=== PATIENT | male | born 1970 | race American Indian/Alaskan Native ===

== ENCOUNTER 2018-07-07 11:20 | Inpatient (IN) | payer OTHER ==
[2018-07-07] MEDS ORDERED: ZOFRAN IV ONE (12:08)
[2018-07-07] MEDS ORDERED: MORPHINE IV ONE (12:08)
[2018-07-07] MEDS ORDERED: NACL 0.9% 1000 ML 1,000 ML IV ONE (12:08)
[2018-07-07] MEDS ORDERED: MORPHINE IV PRN ×2 (12:18→13:33)
[2018-07-07 12:58] LABS: Basophils % (Auto) 0.4 % (0.0-1.8); Eosinophils # (Auto) 0.1 K/mm3 (0.0-0.4); Hematocrit 40.9 % (35.5-45.6); Hemoglobin 13.2 gm/dl (11.8-15.2); Lymphocytes # (Auto) 1.3 K/mm3 (1.2-5.4); Lymphocytes % (Auto) 12.2 % (13.4-35.0); Mean Corpuscular HGB Conc 32 % (32-34); Mean Corpuscular Volume 92 fl (84-94); Monocytes # (Auto) 0.5 K/mm3 (0.0-0.8); Monocytes % (Auto) 5.3 % (0.0-7.3); Platelet Count 183 K/mm3 (140-440); Red Blood Count 4.45 M/mm3 (3.65-5.03); Red Cell Distribution Width 12.7 % (13.2-15.2)
[2018-07-07 13:12] LABS: INR 0.94 (0.87-1.13)
[2018-07-07 13:15] LABS: BUN/Creatinine Ratio 6; Blood Urea Nitrogen 7 mg/dL (9-20); Calcium 8.7 mg/dL (8.4-10.2); Hemolysis Index 27
--- NOTE | 2018-07-07 13:28 | Emergency Department Report ---
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 Somehow he was pushing and pulling and he states his knee pop. He felt like it moved out of place. He couldn't state in one direction. He complains of substantial pain to his left knee. He denies any other injury. He did not fall. -: Sudden Location: left, lower extremity Severity scale (0 -10): 10 Quality: aching Consistency: constant Improves with: none Worsens with: movement Associated Symptoms: denies other symptoms - Related Data Home Medications Medication Instructions Recorded Confirmed Last Taken No Known Home Medications [No 07/07/18 07/07/18 Unknown Reported Home Medications] Allergies Allergy/AdvReac Type Severity Reaction Status Date / Time No Known Allergies Allergy Unverified 07/07/18 12:10 ED Review of Systems ROS: Stated complaint: (L) KNEE PAIN Other details as noted in HPI Constitutional: denies: chills, fever Eyes: denies: eye pain, eye discharge, vision change ENT: denies: ear pain, throat pain Respiratory: denies: cough, shortness of breath, wheezing Cardiovascular: denies: chest pain, palpitations Endocrine: no symptoms reported Gastrointestinal: denies: abdominal pain, nausea, diarrhea Genitourinary: denies: urgency, dysuria Musculoskeletal: as per HPI. denies: back pain Skin: denies: rash, lesions Neurological: denies: headache, weakness, paresthesias Psychiatric: denies: anxiety, depression Hematological/Lymphatic: denies: easy bleeding, easy bruising ED Past Medical Hx - Past Medical History Previous Medical History?: No - Surgical History Past Surgical History?: No - Social History Smoking Status: Never Smoker Substance Use Type: None - Medications Home Medications: Home Medications Medication Instructions Recorded Confirmed Last Taken Type No Known Home Medications [No 07/07/18 07/07/18 Unknown History Reported Home Medications] ED Physical Exam - General Limitations: No Limitations General appearance: alert, in no apparent distress - Head Head exam: Present: atraumatic, normocephalic - Eye Eye exam: Present: normal appearance - ENT ENT exam: Present: mucous membranes moist - Neck Neck exam: Present: normal inspection - Respiratory Respiratory exam: Present: normal lung sounds bilaterally. Absent: respiratory distress - Cardiovascular Cardiovascular Exam: Present: regular rate, normal rhythm. Absent: systolic murmur, diastolic murmur, rubs, gallop - GI/Abdominal GI/Abdominal exam: Present: soft, normal bowel sounds - Rectal Rectal exam: Present: deferred - Extremities Exam Extremities exam: Present: other (the patient appears to have patella [place]. He appears to have a complete defect of the quadriceps femoris tendon above the period there is no obvious joint effusion. He cannot extend his leg at the knee whatsoever. Otherwise neurovascular exam is intact.) - Back Exam Back exam: Present: normal inspection - Neurological Exam Neurological exam: Present: alert, oriented X3 - Psychiatric Psychiatric exam: Present: normal affect, normal mood - Skin Skin exam: Present: warm, dry, intact, normal color. Absent: rash ED Course Vital Signs 07/07/18 11:44 Temperature 97.6 F Pulse Rate 75 Respiratory 16 Rate Blood Pressure 117/69 O2 Sat by Pulse 98 Oximetry - Reevaluation(s) Reevaluation #1: Patient was seen by the orthopedist Dr. Mercado. He asked for hospital medicine to admit. I discussed with Dr. Julian who was admitted this patient for further care and evaluation. Dr. Mercado stated for him to be nothing by mouth at midnight for surgery in the a.m. 07/07/18 13:31 ED Medical Decision Making - Lab Data Result diagrams: 07/07/18 12:35 07/07/18 12:35 Laboratory Results - last 24 hr 07/07/18 07/07/18 07/07/18 12:35 12:35 12:35 WBC 10.4 RBC 4.45 Hgb 13.2 Hct 40.9 MCV 92 MCH 30 MCHC 32 RDW 12.7 L Plt Count 183 Lymph % (Auto) 12.2 L [place] % (Auto) 5.3 Eos % (Auto) 1.0 Baso % (Auto) 0.4 Lymph # 1.3 [place] # 0.5 Eos # 0.1 Baso # 0.0 Seg Neutrophils % 81.1 H Seg Neutrophils # 8.4 H PT 13.0 INR 0.94 APTT 22.0 L Sodium 142 Potassium 4.5 Chloride 103.6 Carbon Dioxide 30 Anion Gap 13 BUN 7 L Creatinine 1.1 Estimated GFR > 60 BUN/Creatinine Ratio 6 Glucose 99 Calcium 8.7 Critical care attestation.: If time is entered above; I have spent that time in minutes in the direct care of this critically ill patient, excluding procedure time. ED Disposition Clinical Impression: Rupture of left quadriceps tendon Qualifiers: Encounter type: initial encounter Qualified Code(s): S76.112A - Strain of left quadriceps muscle, fascia and tendon, initial encounter Disposition: OP ADMIT IP TO THIS HOSP Is pt being admited?: Yes Does the pt Need Aspirin: No Condition: Stable Time of Disposition: 13:32
--- NOTE | 2018-07-07 13:42 | XRay Report ---
LEFT KNEE, 2 views: History: Trauma, pain, apparent ruptured quadriceps tendon. The bony architecture is intact without evidence of fracture or dislocation. No significant soft tissue abnormality is seen. The quadriceps tendon is poorly demonstrated on x-ray but no obvious rupture is apparent. If further evaluation is needed, MRI left knee without contrast is recommended. IMPRESSION: Unremarkable left knee.
--- NOTE | 2018-07-07 16:42 | Consultation ---
History of Present Illness - [facility] Consult date: 07/07/18 Consult reason: joint pain History of present illness: 47-year-old male who comes in complaining of left knee pain after pushing and pulling on a large Coke Machine earlier today, states felt knee pop and since th at time unable to support himself on the left side, came to ED where xrays taken revealing evidence of quadricep tendon rupture.... Medications and Allergies Allergies Allergy/AdvReac Type Severity Reaction Status Date / Time No Known Allergies Allergy Unverified 07/07/18 12:10 Home Medications Medication Instructions Recorded Confirmed Last Taken Type No Known Home Medications [No 07/07/18 07/07/18 Unknown History Reported Home Medications] Active Meds: Active Medications Sodium Chloride (Nacl 0.9% 1000 Ml) 1,000 mls @ 125 mls/hr IV ONCE ONE Stop: 07/07/18 20:07 Last Admin: 07/07/18 12:34 Dose: 125 mls/hr Documented by: Morphine Sulfate (Morphine) 4 mg IV ONCE PRN PRN Reason: Pain , Severe (7-10) Last Admin: 07/07/18 12:35 Dose: 4 mg Documented by: Morphine Sulfate (Morphine) 4 mg IV Q4H PRN PRN Reason: Pain , Severe (7-10) Physical Examination - Physical exam Narrative exam: Physical examination significant musculoskeletal findings released to the left lower extremity. Patient was noted to have a gap noted at the proximal border of the left patella with tenderness noted along the distal thigh patient is unable to extend the knee skin is intact remainder of his physical exam was unremarkable Plan x-rays taken in the ER were reviewed by me and show evidence of a quadriceps tendon rupture with patella [place] no fracture or dislocation was seen Eyes: PERRL ENT: Positive: clear oral mucosa Respiratory effort: normal Respiratory: bilateral: CTA Rhythm: regular Heart Sounds: Positive: S1 & S2 General gastrointestinal: Positive: soft, non-tender, non-distended, normal bowel sounds Integumentary: clear, warm, dry Neurologic: Positive: CNII-XII intact, moves all extremities, gait normal. Negative: focal deficits - Cervical Spine Neck pain: none Tenderness with palpation: none Full ROM: yes ROM: flexion: normal ROM: extension: normal ROM: rotation right: normal ROM: rotation left: normal ROM: lateral flexion right: normal ROM: lateral flexion left: normal - Lumbar Spine Back pain: none Tenderness with palpation: none Appearance: normal Full ROM: yes ROM: flexion: normal ROM: extension: normal ROM: rotation right: normal ROM: rotation left: normal ROM: lateral flexion right: normal ROM: lateral flexion left: normal Assessment and Plan Acute rupture left quadriceps tendon Recommendation We'll admit and repair ruptured left patella tendon
[2018-07-07] MEDS ORDERED: ZOFRAN IV PRN (22:54)
[2018-07-07] MEDS ORDERED: TYLENOL PO PRN (22:54)
[2018-07-07] MEDS ORDERED: SODIUM CHLORIDE FLUSH SYRINGE 10 ML IV PRN (22:54)
[2018-07-08 04:57] LABS: Basophils % (Auto) 0.4 % (0.0-1.8); Eosinophils # (Auto) 0.1 K/mm3 (0.0-0.4); Eosinophils % (Auto) 1.4 % (0.0-4.3); Hematocrit 38.9 % (35.5-45.6); Hemoglobin 12.7 gm/dl (11.8-15.2); Lymphocytes # (Auto) 2.2 K/mm3 (1.2-5.4); Lymphocytes % (Auto) 24.1 % (13.4-35.0); Mean Corpuscular HGB Conc 33 % (32-34); Mean Corpuscular Volume 92 fl (84-94); Monocytes # (Auto) 0.8 K/mm3 (0.0-0.8); Monocytes % (Auto) 8.8 % (0.0-7.3); Platelet Count 169 K/mm3 (140-440); Red Blood Count 4.21 M/mm3 (3.65-5.03); Red Cell Distribution Width 12.8 % (13.2-15.2)
[2018-07-08 05:12] LABS: BUN/Creatinine Ratio 9; Blood Urea Nitrogen 9 mg/dL (9-20); Calcium 8.6 mg/dL (8.4-10.2); Hemolysis Index 18
--- NOTE | 2018-07-08 06:04 | Event Note ---
Date: 07/07/18 See dictated H/p in reports L Quadriceps tear
--- NOTE | 2018-07-08 06:48 | History and Physical Report ---
CHIEF COMPLAINT: Left thigh pain. HISTORY OF PRESENT ILLNESS: A 47-year-old -[place] male with no significant past medical history, who was trying to move a Coke machine by 3 inches forward and felt a snap in his lower part of his thigh and was about to fall down. Unable to extend the leg totally. Pain is about 8 on a scale of 1-10. Injury happened about a couple of hours ago. The patient is normally strong and has been trying to run for a mile every couple of days recently. No weight training. No shortness of breath. No recent travel. PAST MEDICAL HISTORY: None. PAST SURGICAL HISTORY: None. SOCIAL HISTORY: Does not smoke. No alcohol. No recreational drugs. FAMILY HISTORY: Hypertension. REVIEW OF SYSTEMS: Left lower thigh pain, decreased range of motion, and decreased extension at the left knee and also at the left groin region. PHYSICAL EXAMINATION: GENERAL: Young male, cooperative during examination. VITAL SIGNS: Blood pressure 140/73, temperature 98.5, pulse 78, and respirations 18. HEENT: Unremarkable. Pupils equal and reactive. NECK: Supple. No lymphadenopathy. No thyromegaly. LUNGS: Clear to auscultation and percussion. Good air entry. CARDIOVASCULAR: S1, S2 heard. No gallop. No murmur. No rub. Apical impulse in left fifth intercostal space and midclavicular line. ABDOMEN: Soft and benign. No hepatosplenomegaly. No guarding. No rigidity. Hernial orifices are normal. EXTREMITIES: The patient unable to extend at the left knee and also at the left hip joint. Tenderness present in the lower part of the thigh. CENTRAL NERVOUS SYSTEM: Normal. LABORATORY DATA: Labs are normal. CBC within normal limits. Electrolytes are within normal limits. DIAGNOSTIC DATA: X-ray of the left lower extremity shows poorly demonstrated quadriceps tendon. No obvious rupture was present. MRI of the left knee was recommended. ASSESSMENT AND PLAN: Left lower extremity quadriceps tendon rupture distally. MRI ordered. No fracture of the patella. Orthopedics consulted. The patient to go for repairing of the left patellar tendon tomorrow. Orthopedic consult appreciated. Deep vein thrombosis prophylaxis, Lovenox 40 mg subcutaneous daily after the surgery. Pain management. The pain to be controlled adequately. JOB# [id number] VSSusan/GELA MEHTA
[2018-07-08] MEDS ORDERED: DILAUDID IV PRN ×2 (09:54→15:46)
[2018-07-08] MEDS ORDERED: DEMEROL IV PRN (09:54)
[2018-07-08] MEDS ORDERED: ZOFRAN IV PRN ×2 (09:54→15:46)
[2018-07-08] MEDS ORDERED: NEURONTIN PO NR (10:00)
[2018-07-08] MEDS ORDERED: LACTATED RINGERS 1,000 ML IV SCH ×3 (10:00→17:00)
[2018-07-08] MEDS: SODIUM CHLORIDE FLUSH SYRINGE 10 ML IV SCH (10:45)
[2018-07-08] MEDS ORDERED: VERSED IV NR (16:00)
--- NOTE | 2018-07-08 16:02 | Progress Note ---
Assessment and Plan Assessment and plan: Patient is 47 yo man without chronic medical problems who presented to [facility] ED with left knee pains after pushing and pulling on a large Coke Machine at work for [employer]. He felt knee pop and since that time unable to support himself on the left side, xrays taken revealing evidence of quadricep tendon rupture. He denies sob, chest pains. Left quadricep tendon rupture: OR per Ortho DVT prophylaxis per Ortho History Interval history: Patient was seen and examined. Follow-up on current diagnosis of left knee pains. Overnight uneventful. Patient denies any chest pain, shortness breath, nausea/vomiting or severe headaches. Imaging, nursing note, chart, labs and old chart reviewed. Discussed with patient. at bedside. Hospitalist Physical - Physical exam Narrative exam: Gen: WDWN, NAD, Awake, Alert, Orientated x 3 HEENT: NCAT, EOMI, PERRL, OP Clear Neck: supple, no adenopathy, no thyromegaly, no JVD CVS/Heart: RRR, normal S1S2, pulses present bilaterally Chest/Lungs: CTA B, Symmetrical chest expansion, good air entry bilaterally GI/Abdomen: soft, NTND, good bowel sounds, no guarding or rebound /Bladder: no suprapubic tenderness, no CVA or paraspinal tenderness Extermity/Skin: left knee slightly swollen MSK: left knee slightly turned outward Neuro: CN 2-12 grossly intact, no new focal deficits Psych: calm - Constitutional Vitals: Temp Pulse Resp BP Pulse Ox 98.3 F 70 16 126/60 97 07/08/18 11:07 07/08/18 11:05 07/08/18 11:07 07/08/18 11:07 07/08/18 11:05 Results - Labs CBC & Chem 7: 07/08/18 04:30 07/08/18 04:30 Labs: Laboratory Last Values WBC 9.0 K/mm3 (4.5-11.0) 07/08/18 04:30 RBC 4.21 M/mm3 (3.65-5.03) 07/08/18 04:30 Hgb 12.7 gm/dl (11.8-15.2) 07/08/18 04:30 Hct 38.9 % (35.5-45.6) 07/08/18 04:30 MCV 92 fl (84-94) 07/08/18 04:30 MCH 30 pg (28-32) 07/08/18 04:30 MCHC 33 % (32-34) 07/08/18 04:30 RDW 12.8 % (13.2-15.2) L 07/08/18 04:30 Plt Count 169 K/mm3 (140-440) 07/08/18 04:30 Lymph % (Auto) 24.1 % (13.4-35.0) 07/08/18 04:30 [place] % (Auto) 8.8 % (0.0-7.3) H 07/08/18 04:30 Eos % (Auto) 1.4 % (0.0-4.3) 07/08/18 04:30 Baso % (Auto) 0.4 % (0.0-1.8) 07/08/18 04:30 Lymph # 2.2 K/mm3 (1.2-5.4) 07/08/18 04:30 [place] # 0.8 K/mm3 (0.0-0.8) 07/08/18 04:30 Eos # 0.1 K/mm3 (0.0-0.4) 07/08/18 04:30 Baso # 0.0 K/mm3 (0.0-0.1) 07/08/18 04:30 Seg Neutrophils % 65.3 % (40.0-70.0) 07/08/18 04:30 Seg Neutrophils # 5.9 K/mm3 (1.8-7.7) 07/08/18 04:30 PT 13.0 Sec. (12.2-14.9) 07/07/18 12:35 INR 0.94 (0.87-1.13) 07/07/18 12:35 APTT 22.0 Sec. (24.2-36.6) L 07/07/18 12:35 Sodium 143 mmol/L (137-145) 07/08/18 04:30 Potassium 3.7 mmol/L (3.6-5.0) 07/08/18 04:30 Chloride 106.2 mmol/L (98-107) 07/08/18 04:30 Carbon Dioxide 27 mmol/L (22-30) 07/08/18 04:30 Anion Gap 14 mmol/L 07/08/18 04:30 BUN 9 mg/dL (9-20) 07/08/18 04:30 Creatinine 1.0 mg/dL (0.8-1.5) 07/08/18 04:30 Estimated GFR > 60 ml/min 07/08/18 04:30 BUN/Creatinine Ratio 9 % 07/08/18 04:30 Glucose 100 mg/dL (75-100) 07/08/18 04:30 Calcium 8.6 mg/dL (8.4-10.2) 07/08/18 04:30 Nutrition/Malnutrition Assess - Dietary Evaluation Nutrition/Malnutrition Findings: Nutrition Notes Start: 07/08/18 14:17 Freq: Status: Active Protocol: Document 07/08/18 14:17 RM (Rec: 07/08/18 14:17 [id number]) Nutrition Notes Need for Assessment generated from: [email or web address] attendant Initial or Follow up Brief Note Subjective/Other Information Pt screened for skin risk. Maximo 19 points. Nutrition Intervention Revisit per MD consult or patient Sign Off request:
--- NOTE | 2018-07-08 16:04 | Anesthesia Day of Surgery ---
Anesthesia Day of Surgery - Day of Surgery Patient Examined: Yes Patient H&P Reviewed: Yes Patient is NPO: Yes Beta Blockers: No Cardiac Clearance: No Pulmonary Clearance: No
--- NOTE | 2018-07-08 16:05 | Anesthesia Consultation ---
Anesthesia Consult and Med Hx Date of service: 07/08/18 - Airway Anesthetic Teeth Evaluation: Good ROM Head & Neck: Adequate Mental/Hyoid Distance: Adequate Mallampati Class: Class III Intubation Access Assessment: Good - Pulmonary Exam CTA: No - Pre-Operative Health Status ASA Pre-Surgery Classification: ASA1 Proposed Anesthetic Plan: General - Pulmonary Hx Smoking: No Hx Asthma: No COPD: No Hx Pneumonia: No - Cardiovascular System Hx Hypertension: No Hx Coronary Artery Disease: No Hx Heart Attack/AMI: No Hx Angina: No Hx Percutaneous Transluminal Coronary Angioplasty (PTCA): No Hx Cardia Arrhythmia: No Hx Pacemaker: No Hx Internal Defibrillator: No Hx Valvular Heart Disease: No Hx Heart Murmur: No Hx Peripheral Vascular Disease: No - Central Nervous System Hx Neuromuscular Disorder: No Hx Seizures: No CVA: No Hx Back Pain: No Hx Psychiatric Problems: No - Gastrointestinal Hx Ulcer: No Hx Gastroesophageal Reflux Disease: No - Endocrine Hx Renal Disease: No Hx End Stage Renal Disease: No Hx Cirrhosis: No Hx Liver Disease: No Hx Insulin Dependent Diabetes: No Hx Non-Insulin Dependent Diabetes: No Hx Thyroid Disease: No Hx Hypothyroidism: No Hx Hyperthyroidism: No - Hematic Hx Anemia: No Hx Sickle Cell Disease: No - Other Systems Hx Alcohol Use: No Hx Substance Use: No Hx Cancer: No Hx Obesity: No
[2018-07-08] MEDS ORDERED: DIPRIVAN 10 MG/ML IV ONE (16:53)
[2018-07-08] MEDS ORDERED: XYLOCAINE MPF 2% ONE (16:53)
[2018-07-08] MEDS ORDERED: SUBLIMAZE ONE ×3 (16:53→19:53)
--- NOTE | 2018-07-08 18:25 | Anesthesia Day of Surgery ---
Anesthesia Day of Surgery - Day of Surgery Patient Examined: Yes Patient H&P Reviewed: Yes Patient is NPO: Yes
[2018-07-08] MEDS ORDERED: VERSED ONE (18:26)
[2018-07-08] MEDS ORDERED: ANCEF/STERILE WATER 2 GM/20 ML 2 GM/20 ML SYRINGE IV ONE (19:21)
[2018-07-08] MEDS ORDERED: TORADOL ONE (20:08)
[2018-07-08] MEDS ORDERED: MARCAINE 0.5% INFILTRATI ONE ×2 (20:09→20:44)
[2018-07-08] MEDS ORDERED: MORPHINE ONE (20:09)
[2018-07-08] MEDS ORDERED: NACL 0.9% 100 ML ONE (20:10)
[2018-07-08] MEDS ORDERED: NACL 0.9% IV ONE (20:44)
[2018-07-08] MEDS ORDERED: TORADOL IV ONE (20:44)
[2018-07-08] MEDS ORDERED: MORPHINE IM ONE (20:44)
--- NOTE | 2018-07-08 21:09 | Procedure Note ---
Date of procedure: 07/08/18 Pre-op diagnosis: left quadriceps tendon rupture Post-op diagnosis: same Procedure: Repair of left quadriceps tendon rupture, exploration right quadricep tendon Procedure The patient was brought to the OR and placed on the OR table supine, following induction and intubation the patient's right knee was prepped and draped in usual sterile fashion. A time-out procedure done to identify the patient and correct operative site. Informed that the surgical consent stated left quadricep repair but right leg prepped instead we began the incision on the right thigh. Upon entering the deep subcutaneous tissue I noticed that the right quads tendon was intact and then I took the knee through full range of motion, therefore I proceeded to close the wound in standard fashion and applied the dressing. The draping material removed from the right leg and the patient's left knee inspected and found to have a gap noted where the quads tendon inserts therefore decision made to proceed with redraping the left lower extremity. The left leg was exsanguinated and tourniquet inflated to 300 mm Hg. A midline incision made and carried down through the skin and subcutaneous tissue, the quadricep tendon rupture seen coming off proximal pole of the patellar and extending through both medial and lateral retinaculi, hemtoma evacuated next number 5 etibond suture used to repair rupture quads tendon beginning 3 cm within tendon above insertion site and weaving through tendon tissue. Two parallel tunnels made through the patella using 2.0 drill bit followed by securing the # 5 suture at the inferior pole with the knee in full extension. The medial and lateral pat ellar reticulum repaired using # 1 vicryl sutures. The deep subcutaneous tissue closed in standard routine fashion, the skin closed with Zip line suture devise, routine post op dressing applied. He was extubated and taken to post anesthesia recovery in stable condition Anesthesia: ALAINA Surgeon: OMAR TAYLOR Pathology: none Condition: stable Disposition: PACU
[2018-07-08] MEDS ORDERED: DILAUDID ONE ×2 (21:25→21:56)
[2018-07-08] MEDS ORDERED: DEMEROL ONE (21:49)
[2018-07-08] MEDS ORDERED: SODIUM CHLORIDE FLUSH SYRINGE 10 ML IV NR (22:00)
[2018-07-09] MEDS: SODIUM CHLORIDE FLUSH SYRINGE 10 ML IV SCH ×3 (06:22→22:29)
[2018-07-09] MEDS: ANCEF/NS 1 GM/50 ML 1 GM/50 ML BAG IV SCH ×2 (06:53→13:00)
[2018-07-09] MEDS: MORPHINE IV PRN ×3 (06:57→18:27)
--- NOTE | 2018-07-09 13:38 | Progress Note ---
Assessment and Plan s/p repair left ruptured quadriceps tendon doing well will dc to home in am RTC 1 wk Subjective Date of service: 07/09/18 Interval history: doing ok, PT started walked in hallway, c/o incisional pain otherwise ok Objective Vital signs: Vital Signs - 12hr 07/09/18 07/09/18 07:59 08:00 Temperature 98.4 F Pulse Rate 87 Blood Pressure 124/58 O2 Sat by Pulse 98 Oximetry Narrative Exam: post op dressings intact, negative Juanita's sign - Labs CBC & BMP: 07/08/18 04:30 07/08/18 04:30
[2018-07-09] MEDS: NORCO 5/325 PO PRN (15:04)
--- NOTE | 2018-07-09 16:59 | Progress Note ---
Assessment and Plan Assessment and plan: Patient is 47 yo man without chronic medical problems who presented to [facility] ED with left knee pains after pushing and pulling on a large [employer]ke Machine at work for [employer]. He felt knee pop and since that time unable to support himself on the left side, xrays taken revealing evidence of quadricep tendon rupture. He denies sob, chest pains. Left quadricep tendon rupture: OR per Ortho DVT prophylaxis per Ortho History Interval history: Patient was seen and examined. Follow-up on current diagnosis of left knee pains. Overnight uneventful. Patient denies any chest pain, shortness breath, nausea/vomiting or severe headaches. Imaging, nursing note, chart, labs and old chart reviewed. Discussed with patient. at bedside. Hospitalist Physical - Physical exam Narrative exam: Gen: WDWN, NAD, Awake, Alert, Orientated x 3 HEENT: NCAT, EOMI, PERRL, OP Clear Neck: supple, no adenopathy, no thyromegaly, no JVD CVS/Heart: RRR, normal S1S2, pulses present bilaterally Chest/Lungs: CTA B, Symmetrical chest expansion, good air entry bilaterally GI/Abdomen: soft, NTND, good bowel sounds, no guarding or rebound /Bladder: no suprapubic tenderness, no CVA or paraspinal tenderness Extermity/Skin: left knee slightly swollen MSK: left knee slightly turned outward Neuro: CN 2-12 grossly intact, no new focal deficits Psych: calm - Constitutional Vitals: Temp Pulse Resp BP Pulse Ox 98.4 F 79 18 124/71 97 07/09/18 16:00 07/09/18 16:10 07/09/18 16:00 07/09/18 16:00 07/09/18 16:10 Results - Labs CBC & Chem 7: 07/08/18 04:30 07/08/18 04:30 Labs: Laboratory Last Values WBC 9.0 K/mm3 (4.5-11.0) 07/08/18 04:30 RBC 4.21 M/mm3 (3.65-5.03) 07/08/18 04:30 Hgb 12.7 gm/dl (11.8-15.2) 07/08/18 04:30 Hct 38.9 % (35.5-45.6) 07/08/18 04:30 MCV 92 fl (84-94) 07/08/18 04:30 MCH 30 pg (28-32) 07/08/18 04:30 MCHC 33 % (32-34) 07/08/18 04:30 RDW 12.8 % (13.2-15.2) L 07/08/18 04:30 Plt Count 169 K/mm3 (140-440) 07/08/18 04:30 Lymph % (Auto) 24.1 % (13.4-35.0) 07/08/18 04:30 [place] % (Auto) 8.8 % (0.0-7.3) H 07/08/18 04:30 Eos % (Auto) 1.4 % (0.0-4.3) 07/08/18 04:30 Baso % (Auto) 0.4 % (0.0-1.8) 07/08/18 04:30 Lymph # 2.2 K/mm3 (1.2-5.4) 07/08/18 04:30 [place] # 0.8 K/mm3 (0.0-0.8) 07/08/18 04:30 Eos # 0.1 K/mm3 (0.0-0.4) 07/08/18 04:30 Baso # 0.0 K/mm3 (0.0-0.1) 07/08/18 04:30 Seg Neutrophils % 65.3 % (40.0-70.0) 07/08/18 04:30 Seg Neutrophils # 5.9 K/mm3 (1.8-7.7) 07/08/18 04:30 PT 13.0 Sec. (12.2-14.9) 07/07/18 12:35 INR 0.94 (0.87-1.13) 07/07/18 12:35 APTT 22.0 Sec. (24.2-36.6) L 07/07/18 12:35 Sodium 143 mmol/L (137-145) 07/08/18 04:30 Potassium 3.7 mmol/L (3.6-5.0) 07/08/18 04:30 Chloride 106.2 mmol/L (98-107) 07/08/18 04:30 Carbon Dioxide 27 mmol/L (22-30) 07/08/18 04:30 Anion Gap 14 mmol/L 07/08/18 04:30 BUN 9 mg/dL (9-20) 07/08/18 04:30 Creatinine 1.0 mg/dL (0.8-1.5) 07/08/18 04:30 Estimated GFR > 60 ml/min 07/08/18 04:30 BUN/Creatinine Ratio 9 % 07/08/18 04:30 Glucose 100 mg/dL (75-100) 07/08/18 04:30 Calcium 8.6 mg/dL (8.4-10.2) 07/08/18 04:30 Nutrition/Malnutrition Assess - Dietary Evaluation Nutrition/Malnutrition Findings: Nutrition Notes Start: 07/08/18 14:17 Freq: Status: Active Protocol: Document 07/08/18 14:17 RM (Rec: 07/08/18 14:17 [id number]) Nutrition Notes Need for Assessment generated from: loom cleaner Initial or Follow up Brief Note Subjective/Other Information Pt screened for skin risk. Maximo 19 points. Nutrition Intervention Revisit per MD consult or patient Sign Off request:
[2018-07-09] MEDS: DILAUDID IV PRN (22:26)
[2018-07-10] MEDS: DILAUDID IV PRN ×2 (02:10→05:34)
[2018-07-10] MEDS: NORCO 5/325 PO PRN (04:34)
[2018-07-10] MEDS: MORPHINE IV PRN (08:44)
[2018-07-10] MEDS ORDERED: DILAUDID IV PRN (10:33)
[2018-07-10] MEDS: PERCOCET 5/325 PO PRN ×3 (11:12→22:41)
--- NOTE | 2018-07-10 11:41 | Progress Note ---
Assessment and Plan doing well, will continue physical therapy and observation hopefully discharge soon Subjective Date of service: 07/10/18 Interval history: c/o bilateral thigh pain and spasm, up walking with walker in room...discussed events leading up to surgery with the patient and nursing administrative staff told about incident where the right knee operated on along with the left qu adriceps rupture repair. He voiced his understanding and we answered any questions at this time. Objective Vital signs: Vital Signs - 12hr 07/10/18 07/10/18 07/10/18 00:23 04:28 08:00 Temperature 98.6 F 98.2 F 98.3 F Pulse Rate 85 74 76 Respiratory 20 20 18 Rate Blood Pressure 162/84 134/77 Blood Pressure 136/78 [Left] O2 Sat by Pulse 96 95 98 Oximetry Narrative Exam: post op dressing intact, thighs soft, distal n/v intact - Labs CBC & BMP: 07/08/18 04:30 07/08/18 04:30
--- NOTE | 2018-07-10 14:22 | Discharge Summary ---
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 He felt his knee pop and since that time he has been unable to support himself on the left side, xrays taken in ED revealed evidence of quadricep tendon rupture on the Left. He underwent surgery on the left. When I entered his room today; Josie Diaz and Roberta Villarreal, Risk managers along with Dr. Mercado were at bedside. I kindly excused myself to answer a page. I was informed by the group at the nursing station about the incident where the right knee was also operated on along with the left quadriceps rupture which was repaired. RN called me last 07/10/18 and told me that patient was going to be discharge per Dr. Mercado until today. Left quadricep tendon rupture s/p repair, DVT prophylaxis per Ortho Disposition: [id number] HOME UNDER HOME [facility] Time spent for discharge: 32 minutes Core Measure Documentation - Palliative Care Palliative Care/ Comfort Measures: Not Applicable - Core Measures Any of the following diagnoses?: none - VTE Discharge Requirements Deep Vein Thrombosis/Pulmonary Embolism Present on Admission: No Has pt received <5 days of overlap therapy or INR<2.0: No Anticoagulant overlap therapy prescribed at discharge: No Contraindication No Overlap Therapy order at DC: Not Indicated Exam - Physical Exam Narrative exam: Gen: WDWN, NAD, Awake, Alert, Orientated x 3 HEENT: NCAT, EOMI, PERRL, OP Clear Neck: supple, no adenopathy, no thyromegaly, no JVD CVS/Heart: RRR, normal S1S2, pulses present bilaterally Chest/Lungs: CTA B, Symmetrical chest expansion, good air entry bilaterally GI/Abdomen: soft, NTND, good bowel sounds, no guarding or rebound /Bladder: no suprapubic tenderness, no CVA or paraspinal tenderness Extermity/Skin: left knee slightly swollen MSK: left knee slightly turned outward Neuro: CN 2-12 grossly intact, no new focal deficits Psych: calm - Constitutional Vitals: Temp Pulse Resp BP Pulse Ox 99.1 F 79 18 124/56 97 07/10/18 11:49 07/10/18 11:49 07/10/18 11:49 07/10/18 11:49 07/10/18 11:49 Plan Activity: other (no strenous activity) Diet: regular Wound: per your surgeon's advice Follow up with: PRIMARY MD GABRIELA [Primary Care Provider] - 3-5 Days OMAR MERCADO MD [Staff Physician] - 7 Days Prescriptions: HYDROcodone/APAP 7.5-325 [Liberty 7.5-325 mg TAB] 1 each PO Q6HR PRN #30 tablet PRN Reason: Pain oxyCODONE [Roxicodone TAB] 5 mg PO Q6HR PRN #40 tablet PRN Reason: Pain Tizanidine HCl [Zanaflex] 4 mg PO TID PRN #30 capsule PRN Reason: Muscle Spasm
[2018-07-10] MEDS: ZANAFLEX PO SCH ×2 (14:26→22:41)
[2018-07-10] MEDS: SODIUM CHLORIDE FLUSH SYRINGE 10 ML IV SCH (14:39)
--- NOTE | 2018-07-11 02:17 | Progress Note ---
Assessment and Plan Assessment and plan: Patient is 47 yo man without chronic medical problems who presented to [facility] ED with left knee pains after pushing and pulling on a large [employer] Machine at work for [employer]. He felt knee pop and since that time unable to support himself on the left side, xrays taken revealing evidence of quadricep tendon rupture. He denies sob, chest pains. Left quadricep tendon rupture: OR per Ortho DVT prophylaxis per Ortho History Interval history: Patient was seen and examined. Follow-up on current diagnosis of left knee pains. Overnight uneventful. Patient denies any chest pain, shortness breath, nausea/vomiting or severe headaches. Imaging, nursing note, chart, labs and old chart reviewed. Discussed with patient. at bedside. Hospitalist Physical - Physical exam Narrative exam: Gen: WDWN, NAD, Awake, Alert, Orientated x 3 HEENT: NCAT, EOMI, PERRL, OP Clear Neck: supple, no adenopathy, no thyromegaly, no JVD CVS/Heart: RRR, normal S1S2, pulses present bilaterally Chest/Lungs: CTA B, Symmetrical chest expansion, good air entry bilaterally GI/Abdomen: soft, NTND, good bowel sounds, no guarding or rebound /Bladder: no suprapubic tenderness, no CVA or paraspinal tenderness Extermity/Skin: left knee slightly swollen MSK: left knee slightly turned outward Neuro: CN 2-12 grossly intact, no new focal deficits Psych: calm - Constitutional Vitals: Temp Pulse Resp BP Pulse Ox 98.8 F 86 20 141/75 97 07/10/18 23:40 07/10/18 23:40 07/11/18 00:02 07/10/18 23:40 07/10/18 23:40 Results - Labs CBC & Chem 7: 07/08/18 04:30 07/08/18 04:30 Labs: Laboratory Last Values WBC 9.0 K/mm3 (4.5-11.0) 07/08/18 04:30 RBC 4.21 M/mm3 (3.65-5.03) 07/08/18 04:30 Hgb 12.7 gm/dl (11.8-15.2) 07/08/18 04:30 Hct 38.9 % (35.5-45.6) 07/08/18 04:30 MCV 92 fl (84-94) 07/08/18 04:30 MCH 30 pg (28-32) 07/08/18 04:30 MCHC 33 % (32-34) 07/08/18 04:30 RDW 12.8 % (13.2-15.2) L 07/08/18 04:30 Plt Count 169 K/mm3 (140-440) 07/08/18 04:30 Lymph % (Auto) 24.1 % (13.4-35.0) 07/08/18 04:30 Bladen % (Auto) 8.8 % (0.0-7.3) H 07/08/18 04:30 Eos % (Auto) 1.4 % (0.0-4.3) 07/08/18 04:30 Baso % (Auto) 0.4 % (0.0-1.8) 07/08/18 04:30 Lymph # 2.2 K/mm3 (1.2-5.4) 07/08/18 04:30 Bladen # 0.8 K/mm3 (0.0-0.8) 07/08/18 04:30 Eos # 0.1 K/mm3 (0.0-0.4) 07/08/18 04:30 Baso # 0.0 K/mm3 (0.0-0.1) 07/08/18 04:30 Seg Neutrophils % 65.3 % (40.0-70.0) 07/08/18 04:30 Seg Neutrophils # 5.9 K/mm3 (1.8-7.7) 07/08/18 04:30 PT 13.0 Sec. (12.2-14.9) 07/07/18 12:35 INR 0.94 (0.87-1.13) 07/07/18 12:35 APTT 22.0 Sec. (24.2-36.6) L 07/07/18 12:35 Sodium 143 mmol/L (137-145) 07/08/18 04:30 Potassium 3.7 mmol/L (3.6-5.0) 07/08/18 04:30 Chloride 106.2 mmol/L (98-107) 07/08/18 04:30 Carbon Dioxide 27 mmol/L (22-30) 07/08/18 04:30 Anion Gap 14 mmol/L 07/08/18 04:30 BUN 9 mg/dL (9-20) 07/08/18 04:30 Creatinine 1.0 mg/dL (0.8-1.5) 07/08/18 04:30 Estimated GFR > 60 ml/min 07/08/18 04:30 BUN/Creatinine Ratio 9 % 07/08/18 04:30 Glucose 100 mg/dL (75-100) 07/08/18 04:30 Calcium 8.6 mg/dL (8.4-10.2) 07/08/18 04:30 Nutrition/Malnutrition Assess - Dietary Evaluation Nutrition/Malnutrition Findings: Nutrition Notes Start: 07/08/18 14:17 Freq: Status: Active Protocol: Document 07/08/18 14:17 RM (Rec: 07/08/18 14:17 [id number]) Nutrition Notes Need for 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 Maximo 19 points. Nutrition Intervention Revisit per MD consult or patient Sign Off request:
[2018-07-11] MEDS: ZANAFLEX PO SCH ×2 (06:01→13:03)
[2018-07-11] MEDS: SODIUM CHLORIDE FLUSH SYRINGE 10 ML IV SCH (10:10)
[2018-07-11] MEDS: PERCOCET 5/325 PO PRN (10:10)
[2018-07-11 11:59] VITALS: BP 132/73
== END 2018-07-11 15:05 | disposition home health service (06) | DRG 502 ==
LOC: ED 11:20 → 3B-SURG 13:32
PROVIDERS: ADMIT Internal Medicine; ATTEND Internal Medicine
PROC: 0LJ Tendons, Inspection (ICD-10-PCS; principal; 2018-07-08)
PROC: 0LQM0ZZ Repair Left Upper Leg Tendon, Open Approach (ICD-10-PCS; 2018-07-08)
PROC: 0LCM0ZZ Extirpation of Matter from Left Upper Leg Tendon, Open Approach (ICD-10-PCS; 2018-07-08)
DX: S76.112A Strain of left quadriceps muscle, fascia and tendon, initial encounter (principal); W18.39XA Other fall on same level, initial encounter; Y93.89 Activity, other specified; Y92.098 Other place in other non-institutional residence as the place of occurrence of the external cause; Y99.8 Other external cause status; Z82.49 Family history of ischemic heart disease and other diseases of the circulatory system
CPT/HCPCS: 36415; 80048; 85025; 85610; 85730; 96374; 96375; G0378; J0690; J1170; J1885; J2175; J2250; J2270; J2405; J2704; J3010; J7030; J7120